=== PATIENT | female | born 1980 | race Caucasian/White ===

== ENCOUNTER 2019-01-06 18:16 | Emergency (ER) | payer OTHER ==
[~2019-01-06] VITALS: Ht 167.6 cm; Wt 75.6 kg
[2019-01-06 18:27] VITALS: BP 117/74
[2019-01-06] MEDS ORDERED: PENI500T2 PO (20:04)
[2019-01-06] MEDS ORDERED: penicillin V potassium 500mg tablet PO ONE (20:05)
== END 2019-01-06 20:18 | disposition home or self-care (01) ==
LOC: ER 18:16
DX: K08.89 Other specified disorders of teeth and supporting structures (principal); Z88.2 Allergy status to sulfonamides; Z79.2 Long term (current) use of antibiotics
CPT/HCPCS: 99283

== ENCOUNTER 2019-06-23 19:25 | Emergency (ER) | payer OTHER ==
[~2019-06-23] VITALS: Ht 167.6 cm; Wt 71.0 kg
[2019-06-23 19:34] VITALS: BP 126/81
[2019-06-23] MEDS ORDERED: AMOX500C2 PO (22:08)
[2019-06-23] MEDS ORDERED: PRED20TA PO (22:08)
[2019-06-23] MEDS ORDERED: amoxicillin 250mg capsule PO ONE (22:20)
== END 2019-06-23 22:33 | disposition home or self-care (01) ==
LOC: ER 19:25
DX: J20.9 Acute bronchitis, unspecified (principal); Z88.2 Allergy status to sulfonamides; Z79.899 Other long term (current) drug therapy
CPT/HCPCS: 99283

== ENCOUNTER 2020-01-22 09:24 | Emergency (ER) | payer MEDICAID, OTHER ==
[~2020-01-22] VITALS: Ht 167.6 cm; Wt 65.3 kg
[2020-01-22] MEDS ORDERED: ketorolac trometh. 30mg/ml inj. IV ONE (09:45)
[2020-01-22] MEDS ORDERED: ondansetron/PF 4mg/2ml inj IV ONE (09:45)
[2020-01-22] MEDS ORDERED: normal saline 1000ML IV soln IVB ONE (09:45)
[2020-01-22 09:51] LABS: BASOPHILS # (AUTO) 0.1 X10'3 (0-0.2); BASOPHILS % (AUTO) 1.3 % (0-1); EOSINOPHILS # (AUTO) 0.1 X10'3 (0-0.9); EOSINOPHILS % (AUTO) 1.8 % (0-6); HEMATOCRIT 37.2 % (35.0-45.0); HEMOGLOBIN 12.1 g/dl (12.0-16.0); LYMPHOCYTES # (AUTO) 1.9 X10'3 (1.1-4.8); LYMPHOCYTES % (AUTO) 28.7 % (21-51); MEAN CORPUSCULAR HEMOGLOBIN 26.8 PG (27.0-31.0); MEAN CORPUSCULAR HGB CONC 32.6 g/dL (33.0-36.5); MEAN CORPUSCULAR VOLUME 82.3 FL (78-98); MEAN PLATELET VOLUME 8.8 FL (7.4-10.4); MONOCYTES # (AUTO) 0.3 X10'3 (0-0.9); MONOCYTES % (AUTO) 5.1 % (2-12); NEUTROPHILS # (AUTO) 4.3 X10'3 (1.8-7.7); NEUTROPHILS % (AUTO) 63.1 % (42-75); PLATELET COUNT 265 X10'3 (140-440); RED BLOOD COUNT 4.52 X10'6 (4.20-5.60); RED CELL DISTRIBUTION WIDTH 14.3 % (11.5-14.5); WHITE BLOOD COUNT 6.8 X10'3 (4.5-11.0)
[2020-01-22 09:52] LABS: CLARITY,URINE SLIGHTLY CLOUDY (Clear); COLOR,URINE STRAW (Yellow); GLUCOSE, URINE NEGATIVE (Neg); KETONES,URINE NEGATIVE (Neg); LEUKOCYTE ESTERASE ,URINE NEGATIVE (Neg); NITRITES, URINE NEGATIVE (Neg); OCCULT BLOOD,URINE NEGATIVE (Neg); PROTEIN,URINE NEGATIVE (Neg); UA COLLECTION TYPE VOIDED; UROBILINOGEN,URINE 0.2 E.U/dL (0.2-1.0)
[2020-01-22 09:55] LABS: URINE HCG NEGATIVE (NEG)
[2020-01-22 09:58] LABS: BACTERIA,URINE FEW /HPF (Neg); MUCUS STRANDS FEW /LPF (Neg); RBC,URINE 0-2 /HPF (0-2); SQUAMOUS EPITHELIAL CELL,UR MODERATE /LPF (FEW); WBC,URINE 0-4 /HPF (0-4)
[2020-01-22 10:05] LABS: ALANINE AMINOTRANSFERASE 25 U/L (12-78); ALBUMIN 3.5 G/DL (3.4-5.0); ALKALINE PHOSPHATASE 53 IU/L (46-116); ANION GAP 7 (8-16); ASPARTATE AMINO TRANSFERASE 19 U/L (10-37); BILIRUBIN,TOTAL 0.4 MG/DL (0.1-1.0); BLOOD UREA NITROGEN 11 MG/DL (7-18); BUN/CREATININE RATIO 13.4 (6.6-38.0); CALCIUM 8.4 MG/DL (8.5-10.1); CHLORIDE 105 MMOL/L (99-107); CREATININE 0.82 MG/DL (0.40-0.90); GLUCOSE 97 MG/DL (70-104); LIPASE 192 U/L (73-393); POTASSIUM 3.9 MMOL/L (3.5-5.1); SODIUM 138 MMOL/L (135-145); TOTAL CARBON DIOXIDE 25.9 MMOL/L (24-32); TOTAL PROTEIN 6.9 G/DL (6.4-8.2); eGFR 77 ML/MIN
--- NOTE | 2020-01-22 10:33 | NUR ---
ULTRASOUND AT BEDSIDE
[2020-01-22] MEDS ORDERED: HYDR-4383 PO (10:54)
[2020-01-22] MEDS ORDERED: NAPR-56 PO (10:54)
[2020-01-22] MEDS ORDERED: ONDA4TAB6 PO (11:10)
[2020-01-22 11:15] VITALS: BP 129/88
== END 2020-01-22 11:16 | disposition home or self-care (01) ==
LOC: ER 09:24
DX: N83.201 Unspecified ovarian cyst, right side (principal); R10.9 Unspecified abdominal pain; R11.0 Nausea; Z88.2 Allergy status to sulfonamides; Z79.899 Other long term (current) drug therapy
CPT/HCPCS: 36415; 76830; 76856; 80053; 81001; 81025; 83690; 85025; 93976; 96374; 96375; 99284; J1885; J2405; J7030

== ENCOUNTER 2021-01-11 12:47 | Emergency (ER) | payer MEDICAID, OTHER ==
[~2021-01-11] VITALS: Ht 170.2 cm; Wt 63.6 kg
[~2021-01-11 12:47] MED LIST: HYDR-4383 PO; ONDA4TAB6 PO
[2021-01-11 14:22] LABS: ALANINE AMINOTRANSFERASE 25 U/L (12-78); ALBUMIN 3.3 G/DL (3.4-5.0); ALBUMIN/GLOBULIN RATIO 0.9 (1.1-1.5); ALKALINE PHOSPHATASE 63 IU/L (46-116); ANION GAP 8 (8-16); ASPARTATE AMINO TRANSFERASE 36 U/L (10-37); BILIRUBIN,TOTAL 0.3 MG/DL (0.1-1.0); BLOOD UREA NITROGEN 9 MG/DL (7-18); CALCIUM 8.1 MG/DL (8.5-10.1); CHLORIDE 106 MMOL/L (99-107); CREATININE 0.75 MG/DL (0.40-0.90); GLUCOSE 92 MG/DL (70-104); POTASSIUM 3.4 MMOL/L (3.5-5.1); SODIUM 141 MMOL/L (135-145); TOTAL CARBON DIOXIDE 26.7 MMOL/L (24-32); TOTAL PROTEIN 6.8 G/DL (6.4-8.2); eGFR 85 ML/MIN
[2021-01-11 14:29] LABS: BASOPHILS # (AUTO) 0.1 X10'3 (0-0.2); BASOPHILS % (AUTO) 1.2 % (0-1); EOSINOPHILS # (AUTO) 0.1 X10'3 (0-0.9); EOSINOPHILS % (AUTO) 1.9 % (0-6); HEMATOCRIT 34.7 % (35.0-45.0); HEMOGLOBIN 11.4 g/dl (12.0-16.0); LYMPHOCYTES # (AUTO) 1.9 X10'3 (1.1-4.8); LYMPHOCYTES % (AUTO) 24.7 % (21-51); MEAN CORPUSCULAR HEMOGLOBIN 26.3 PG (27.0-31.0); MEAN CORPUSCULAR VOLUME 79.8 FL (78-98); MEAN PLATELET VOLUME 9.3 FL (7.4-10.4); MONOCYTES # (AUTO) 0.5 X10'3 (0-0.9); MONOCYTES % (AUTO) 6.2 % (2-12); PLATELET COUNT 277 X10'3 (140-440); RED BLOOD COUNT 4.35 X10'6 (4.20-5.60); WHITE BLOOD COUNT 7.6 X10'3 (4.5-11.0)
[2021-01-11] MEDS ORDERED: ALBU6.7H9 INH (14:52)
[2021-01-11 15:04] VITALS: BP 138/89
--- NOTE | 2021-01-11 15:09 | NUR ---
call [phone] for covid results.
== END 2021-01-11 15:10 | disposition home or self-care (01) ==
LOC: ER 12:48
DX: J45.909 Unspecified asthma, uncomplicated (principal); Z20.822 Contact with and (suspected) exposure to COVID-19; R05 Cough; J02.9 Acute pharyngitis, unspecified; R50.9 Fever, unspecified; R51.9 Headache, unspecified; R06.02 Shortness of breath; Z86.73 Personal history of transient ischemic attack (TIA), and cerebral infarction without residual deficits; Z87.440 Personal history of urinary (tract) infections; Z98.890 Other specified postprocedural states; Z88.2 Allergy status to sulfonamides; Z79.899 Other long term (current) drug therapy
CPT/HCPCS: 36415; 71045; 80053; 83880; 84484; 85025; 87635; 93005; 99285; C9803

== ENCOUNTER 2022-08-31 18:55 | Emergency (ER) | payer OTHER, SELFPAY ==
[~2022-08-31] VITALS: Ht 167.6 cm; Wt 75.4 kg
[~2022-08-31 18:55] MED LIST changes: +ALBU6.7H14 INH
[2022-08-31 19:22] VITALS: BP 140/89
[2022-08-31] MEDS ORDERED: AZIT250T2 PO (19:37)
== END 2022-08-31 20:50 | disposition home or self-care (01) ==
LOC: ER 18:56
DX: J20.9 Acute bronchitis, unspecified (principal); Z88.2 Allergy status to sulfonamides; Z79.899 Other long term (current) drug therapy; Z87.448 Personal history of other diseases of urinary system
CPT/HCPCS: 71045; 99283